=== PATIENT | male | born 1945 | race Caucasian/White ===

== ENCOUNTER 2023-06-01 00:39 | Emergency (ER) | payer BC, MEDICARE ==
[2023-06-01] MEDS ORDERED: Lidocaine 1% (PF) 30 ML VIAL ONE (01:17)
== END 2023-06-01 02:26 | disposition home or self-care (01) ==
LOC: CSHERS 00:39
DX: S01.411A Laceration without foreign body of right cheek and temporomandibular area, initial encounter (principal); S01.311A Laceration without foreign body of right ear, initial encounter; S80.02XA Contusion of left knee, initial encounter; S50.02XA Contusion of left elbow, initial encounter; S50.311A Abrasion of right elbow, initial encounter; S80.212A Abrasion, left knee, initial encounter; J45.909 Unspecified asthma, uncomplicated; I10 Essential (primary) hypertension; Z79.51 Long term (current) use of inhaled steroids; Z79.82 Long term (current) use of aspirin; Z79.899 Other long term (current) drug therapy; W06.XXXA Fall from bed, initial encounter
CPT/HCPCS: 70450; 70486; J2001

== ENCOUNTER 2023-06-01 07:54 | Emergency (ER) | payer BC, MEDICARE ==
[2023-06-01] MEDS ORDERED: Lidocaine 1% PF 5 ML VIAL ONE (08:37)
[2023-06-01] MEDS ORDERED: Boostrix 0.5 ML (Tdap) VIAL (>/=7 yrs of age) ONE (09:14)
== END 2023-06-01 09:32 | disposition home or self-care (01) ==
LOC: CSHERS 07:54
DX: S01.311D Laceration without foreign body of right ear, subsequent encounter (principal); I10 Essential (primary) hypertension; W18.09XD Striking against other object with subsequent fall, subsequent encounter
CPT/HCPCS: 12011; 70450; 70486; 90471; 90715; J2001

== ENCOUNTER 2023-09-12 12:09 | Emergency (ER) | payer BC, MEDICARE | END 2023-09-12 13:28 | disposition home or self-care (01) | LOC: CSHERS 12:09 | DX: L03.031 Cellulitis of right toe (principal); I10 Essential (primary) hypertension ==